=== PATIENT | male | born 1965 | race Caucasian/White ===

== ENCOUNTER 2016-06-25 11:17 | Emergency (ER) | payer OTHER ==
--- NOTE | 2016-06-25 12:24 | DIAGNOSTIC IMAGING REPORT ---
PROCEDURE: XR CHEST 2 VIEW INDICATION: COUGH TECHNIQUE: PA and lateral views. COMPARISON: None. FINDINGS: Lungs are clear. Heart and mediastinum are normal. Thorax is normal. IMPRESSION: 1. Negative chest.
--- NOTE | 2016-06-26 02:32 | ED CLINICAL REPORT ---
Clinical Report - Physicians/Mid Levels [facility] [address] [place] [address] 06/25/2016 11:21 [id number] Time Seen: 11:54 Jun 25 2016. Arrived- By private vehicle. Historian- patient. CPT: ER phys charges level 4 (#[id number]). HISTORY OF PRESENT ILLNESS Chief Complaint: SORE THROAT. Body aches, cough. 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 Pain described as moderate. The patient has had a sore throat. (Muscle aches). Similar symptoms previously: As bad. Diagnosed as streptococcal infection. Recent medical care: Not recently seen/assessed. REVIEW OF SYSTEMS No fever, eye discomfort, chest pain, nausea or diarrhea. No abdominal pain, headache, fainting episodes, joint pain or skin rash. No enlarged lymph nodes or vomiting. He has had a moderate cough productive of moderate amounts of yellow sputum. He has had difficulty breathing. All systems otherwise negative, except as recorded above. PAST HISTORY Strep Throat. --11:30 Stephane Mendez R.N. ADDITIONAL SURGERIES: Tonsillectomy. Medications: None. Allergies: No Known Drug Allergy. SOCIAL HISTORY Former smoker. No alcohol use or drug use. ADDITIONAL NOTES The nursing notes have been reviewed. PHYSICAL EXAM Vital Signs: 06/25/2016 11:28 BP: 95/62. HR: 86. RR: 16. O2 saturation: 100%. Temp: 100.6 F. Pain level now: 8/10. Appearance: Alert. No acute distress. Head: Normal external inspection. Eyes: Pupils equal, round and reactive to light. Conjunctivae and eyelids normal. ENT: Ears normal. Nose normal. Pharynx normal. Lips normal. Gums normal. No trismus present. Uvula midline. No pharyngeal erythema, mouth ulcerations or tonsillar exudate. Neck: Trachea midline. No adenopathy. CVS: Normal heart rate and rhythm. Heart sounds normal. Pulses normal. Respiratory: No respiratory distress. Mild bilateral rhonchi present diffusely. Chest nontender. Abdomen: Soft and nontender. Skin: Normal skin color. No rash. Extremities: Extremities nontender. Neuro: Oriented X 3. No motor deficit. No sensory deficit. Reflexes normal. LABS, X-RAYS, AND EKG Chest X-ray: Normal Chest X-Ray. Laboratory Tests: CBC w Diff: (JABIER: 06/25/2016 12:20) ( [facility] 06/25/2016 12:35) Final results Test Result Flag Units (Reference) WHITE BLOOD COUNT 6.7 K/uL (4.5-11.5) RED BLOOD COUNT 5.26 M/uL (4.50-5.90) HEMOGLOBIN 14.3 gm/dL (13.5-17.5) HEMATOCRIT 43.8 % (41.0-53.0) MEAN CELL VOLUME 83 fL (80-100) MEAN CORPUSCULAR HGB 27 pg (26-34) MEAN CORPUSCULAR HGB CONC 33 g/dL (31-37) RED CELL DISTRIBUTION WIDTH 19.6 H % (11.6-14.8) PLATELET COUNT 206 K/uL (150-400) NEUTROPHIL % 79.3 H % (50-75) LYMPH % 11.5 L % (25-40) MONO % 8.6 % (3-14) EOSINOPHIL % 0.2 % (0-4) BASOPHIL % 0.4 % (0-2) Culture, Strep Screen: (JABIER: 06/25/2016 12:25) ( [facility] 06/25/2016 13:04) Final results Test Result Flag Units (Reference) RAPID STREP SCREEN - THROAT DATE: 06/25/16 NEGATIVE SCREEN: RAPID STREP SCREEN NEGATIVE; CONFIRMATION TO FOLLOW Rapid Influenza Screen: (JABIER: 06/25/2016 12:25) ( [facility] 06/25/2016 13:04) Final results SPECIMEN DESCRIPTION: SWAB Test Result Flag Units (Reference) RAPID INFLUENZA SCREEN CALLED TO: JERAD KHAN ED -- DATE: 06/25/16 INFLUENZA A: NEGATIVE SCREEN FOR INFLUENZA A INFLUENZA B: POSITIVE SCREEN FOR INFLUENZA B . PROGRESS AND PROCEDURES Course of Care: White GI cocktail did nothing for throat pain. Patient/family counseled. Disposition: Discharged. Condition: stable. CLINICAL IMPRESSION Influenza type B with upper respiratory infection, rhinitis and bronchitis. INSTRUCTIONS No strenuous activity. Drink plenty of fluids. Warnings: Further evaluation is necessary. GENERAL WARNINGS: Return or contact your physician immediately if your condition worsens or changes unexpectedly, if not improving as expected, or if other problems arise. Prescription Medications: Hydrocodone/APAP 5mg/325mg: take 1 to 2 orally every 6 hours as needed for pain. Dispense fifteen (15). No refills. OTC Medications: Motrin (available over the counter): take according to label instructions. Follow-up: Return to the emergency department If worsening. Follow up with your doctor in five days if not better. Understanding of the discharge instructions verbalized by patient. (Electronically signed by Brady Vernon MD 06/25/2016 16:52)
--- NOTE | 2016-06-26 02:32 | ED NURSING NOTES ---
Clinical Report - Nurses [facility] [place] [address] 06/25/2016 11:21 Patient: BALAJI PENN TRIAGE Triage time 11:28. Acuity: LEVEL 4. Chief Complaint: "FLU", SORE THROAT and BODY ACHES and (Onset of flu sx 5 days ago, unknown if he has a fever. Difficulty swallowing, no appetite, unable to sleep.). 11:34 06/25/16. SEPSIS SCREEN: Sepsis Screen. Negative (no infection suspected/documented). JORGE COMA SCORE: Jorge Coma Scale: 15- eyes open spontaneously (4); best verbal response- oriented x 4 (5); best motor response- obeys commands (6). --11:34 Stephane Mendez R.N. 11:28 06/25/16. BP: 95/62. HR: 86. RR: 16. O2 saturation: 100% on room air. Temp: 100.6 F (oral). Pain level now: 11/27. --11:34 Stephane Mendez R.N. Weight: 63.5 kg stated. Height/Length: 58 inches Per Patient. BMI: 29.3. --11:30 Stephane Mendez R.N. Medications None. --11:30 Stephane Mendez R.N. Allergies No Known Drug Allergy. --11:30 Stephane Mendez R.N. History Arrived by private vehicle. Historian: patient. SOCIAL HX: Former smoker, end date 2009. No alcohol use or drug use. ABUSE ASSESSMENT: No report of abuse. --11:34 Stephane Mendez R.N. PROBLEMS: Strep Throat. --11:30 Stephane Mendez R.N. ADDITIONAL SURGERIES: Tonsillectomy. --11:30 Stephane Mendez R.N. Interventions ID band on patient. To treatment room. --11:34 Stephane Mendez R.N. PHYSICAL ASSESSMENT 11:40 06/25/16. Ambulatory to room. GENERAL / NEURO / PSYCH: Alert. Oriented X 4. Appears in pain. HEENT: Pupils equal, round and reactive to light. ( sore throat). Mucous membranes are pink. RESPIRATORY: Respirations not labored. Chest nontender. Breath sounds within normal limits. CVS: Capillary refill less than 2 seconds. Pulses within normal limits. GI / : Abdomen soft and nontender and normal bowel sounds. SKIN: Skin is pale. Skin is warm and dry. Normal skin turgor. --11:40 Stephane Mendez R.N. NURSING PROGRESS NOTES 11:41 06/25/16. Head of bed elevated. Reassurance given. Two patient identifiers checked. Call light placed in reach. Bed placed in lowest position. Brakes of bed on. Patient ready for evaluation- chart flagged. --11:41 Stephane Mendez R.N. 12:30 06/25/2016 GI COCKTAIL WHITE (Simethicone) PO Oral Suspension 50 mL given. Allergies verified and confirmed 5 rights. --12:33 Stephane Mendez R.N. 13:10. ( Pt resting quietly, given additional blanket and lights dimmed. waiting for lab results). --13:11 Ingrid Krishnamurthy R.N. DISPOSITION / DISCHARGE 13:20. Condition at departure: stable. No learning barriers present. Discharge instructions provided and reviewed with the patient. Reviewed medication(s) (vicodin , motrin). Patient verbalized understanding. Written instructions provided in Ukrainian. The patient was discharged home. He left the Emergency Department ambulatory and via private vehicle. --13:38 Ingrid Krishnamurthy R.N. 13:20 06/25/16. BP: 102/62. HR: 92. RR: 18. O2 saturation: 97%. Temp: 100.4 F. Pain level now: 11/27. --13:38 Ingrid Krishnamurthy R.N. Locked/Released at 06/25/2016 13:38 by Ingrid Krishnamurthy R.N.
--- NOTE | 2016-06-26 02:32 | ED ORDER SUMMARY ---
..... Patient: BALAJI PENN OrderSheet [facility] VisitID: [id number] [address] [place] [address] 51y, M Registration Date/Time: 06/25/2016 ORDER SHEET Weight: 63.5 kg (stated) Allergies: No Known Drug Allergy GENERAL ORDERS: Chest 2V Urgent (12:02 06/25/2016 Rebecca NAYAK) (12:10 KHoerner) Rapid Influenza Screen (Nasal Pharyngeal) (swab) Urgent (12:03 06/25/2016 Rebecca NAYAK) (Ack 12:12 KHoerner) (12:33 JSimbeck R.N.) CBC w Diff Urgent (12:03 06/25/2016 Rebecca NAYAK) (Ack 12:12 KHoerner) (12:33 JSimbeck R.N.) Culture, Strep Screen Urgent (12:03 06/25/2016 Rebecca NAYAK) (Ack 12:12 KHoerner) (12:33 JSimbeck R.N.) MEDICATION ORDERS: GI Cocktail WHITE PO 50 mL (NOW) (12:03 06/25/2016 Rebecca NAYAK) (12:33 JSimbeck R.N.) IV FLUIDS: ORDER SHEET NOTES: [Electronically signed by Ingrid Krishnamurthy R.N. (13:38 06/25/2016)] [Electronically signed by Brady Vernon MD (16:52 06/25/2016)] [Electronically locked/signed by Ingrid Krishnamurthy R.N. (13:38 06/25/2016)]
--- NOTE | 2016-06-26 02:32 | ED ORDER SUMMARY ---
..... Patient: BALAJI PENN OrderSheet [facility] VisitID: [id number] [address] [place] [address] 51y, M Registration Date/Time: 06/25/2016 ORDER SHEET Weight: 63.5 kg (stated) Allergies: No Known Drug Allergy GENERAL ORDERS: Chest 2V Urgent (12:02 06/25/2016 Rebecca NAYAK) (12:10 KHoerner) Rapid Influenza Screen (Nasal Pharyngeal) (swab) Urgent (12:03 06/25/2016 Rebecca NAYAK) (Ack 12:12 KHoerner) (12:33 JSimbeck R.N.) CBC w Diff Urgent (12:03 06/25/2016 Rebecca NAYAK) (Ack 12:12 KHoerner) (12:33 JSimbeck R.N.) Culture, Strep Screen Urgent (12:03 06/25/2016 Rebecca NAYAK) (Ack 12:12 KHoerner) (12:33 JSimbeck R.N.) MEDICATION ORDERS: GI Cocktail WHITE PO 50 mL (NOW) (12:03 06/25/2016 Rebecca NAYAK) (12:33 JSimbeck R.N.) IV FLUIDS: ORDER SHEET NOTES: [Electronically signed by Ingrid Krishnamurthy R.N. (13:38 06/25/2016)] [Electronically signed by Brady Vernon MD (16:52 06/25/2016)] [Electronically locked/signed by Ingrid Krishnamurthy R.N. (13:38 06/25/2016)]
--- NOTE | 2016-06-26 02:32 | ED CLINICAL REPORT ---
Clinical Report - Physicians/Mid Levels [facility] [address] [place] [address] 06/25/2016 11:21 [id number] Time Seen: 11:54 Jun 25 2016. Arrived- By private vehicle. Historian- patient. CPT: ER phys charges level 4 (#[id number]). HISTORY OF PRESENT ILLNESS Chief Complaint: SORE THROAT. Body aches, cough. 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 Pain described as moderate. The patient has had a sore throat. (Muscle aches). Similar symptoms previously: As bad. Diagnosed as streptococcal infection. Recent medical care: Not recently seen/assessed. REVIEW OF SYSTEMS No fever, eye discomfort, chest pain, nausea or diarrhea. No abdominal pain, headache, fainting episodes, joint pain or skin rash. No enlarged lymph nodes or vomiting. He has had a moderate cough productive of moderate amounts of yellow sputum. He has had difficulty breathing. All systems otherwise negative, except as recorded above. PAST HISTORY Strep Throat. --11:30 Stephane Mendez R.N. ADDITIONAL SURGERIES: Tonsillectomy. Medications: None. Allergies: No Known Drug Allergy. SOCIAL HISTORY Former smoker. No alcohol use or drug use. ADDITIONAL NOTES The nursing notes have been reviewed. PHYSICAL EXAM Vital Signs: 06/25/2016 11:28 BP: 95/62. HR: 86. RR: 16. O2 saturation: 100%. Temp: 100.6 F. Pain level now: 8/10. Appearance: Alert. No acute distress. Head: Normal external inspection. Eyes: Pupils equal, round and reactive to light. Conjunctivae and eyelids normal. ENT: Ears normal. Nose normal. Pharynx normal. Lips normal. Gums normal. No trismus present. Uvula midline. No pharyngeal erythema, mouth ulcerations or tonsillar exudate. Neck: Trachea midline. No adenopathy. CVS: Normal heart rate and rhythm. Heart sounds normal. Pulses normal. Respiratory: No respiratory distress. Mild bilateral rhonchi present diffusely. Chest nontender. Abdomen: Soft and nontender. Skin: Normal skin color. No rash. Extremities: Extremities nontender. Neuro: Oriented X 3. No motor deficit. No sensory deficit. Reflexes normal. LABS, X-RAYS, AND EKG Chest X-ray: Normal Chest X-Ray. Laboratory Tests: CBC w Diff: (JABIER: 06/25/2016 12:20) ( [facility] 06/25/2016 12:35) Final results Test Result Flag Units (Reference) WHITE BLOOD COUNT 6.7 K/uL (4.5-11.5) RED BLOOD COUNT 5.26 M/uL (4.50-5.90) HEMOGLOBIN 14.3 gm/dL (13.5-17.5) HEMATOCRIT 43.8 % (41.0-53.0) MEAN CELL VOLUME 83 fL (80-100) MEAN CORPUSCULAR HGB 27 pg (26-34) MEAN CORPUSCULAR HGB CONC 33 g/dL (31-37) RED CELL DISTRIBUTION WIDTH 19.6 H % (11.6-14.8) PLATELET COUNT 206 K/uL (150-400) NEUTROPHIL % 79.3 H % (50-75) LYMPH % 11.5 L % (25-40) MONO % 8.6 % (3-14) EOSINOPHIL % 0.2 % (0-4) BASOPHIL % 0.4 % (0-2) Culture, Strep Screen: (JABIER: 06/25/2016 12:25) ( [facility] 06/25/2016 13:04) Final results Test Result Flag Units (Reference) RAPID STREP SCREEN - THROAT DATE: 06/25/16 NEGATIVE SCREEN: RAPID STREP SCREEN NEGATIVE; CONFIRMATION TO FOLLOW Rapid Influenza Screen: (JABIER: 06/25/2016 12:25) ( [facility] 06/25/2016 13:04) Final results SPECIMEN DESCRIPTION: SWAB Test Result Flag Units (Reference) RAPID INFLUENZA SCREEN CALLED TO: JERAD KHAN ED -- DATE: 06/25/16 INFLUENZA A: NEGATIVE SCREEN FOR INFLUENZA A INFLUENZA B: POSITIVE SCREEN FOR INFLUENZA B . PROGRESS AND PROCEDURES Course of Care: White GI cocktail did nothing for throat pain. Patient/family counseled. Disposition: Discharged. Condition: stable. CLINICAL IMPRESSION Influenza type B with upper respiratory infection, rhinitis and bronchitis. INSTRUCTIONS No strenuous activity. Drink plenty of fluids. Warnings: Further evaluation is necessary. GENERAL WARNINGS: Return or contact your physician immediately if your condition worsens or changes unexpectedly, if not improving as expected, or if other problems arise. Prescription Medications: Hydrocodone/APAP 5mg/325mg: take 1 to 2 orally every 6 hours as needed for pain. Dispense fifteen (15). No refills. OTC Medications: Motrin (available over the counter): take according to label instructions. Follow-up: Return to the emergency department If worsening. Follow up with your doctor in five days if not better. Understanding of the discharge instructions verbalized by patient. (Electronically signed by Brady Vernon MD 06/25/2016 16:52)
--- NOTE | 2016-06-26 02:35 | ED DISCHARGE INSTRUCTIONS ---
Patient: BALAJI PENN General Instructions [facility] VisitID: [id number] [place] [address] 51y, M Registration Date/Time: 06/25/2016 Influenza type B with upper respiratory infection, rhinitis and bronchitis. INSTRUCTIONS No strenuous activity. Drink plenty of fluids. Warnings: Further evaluation is necessary. GENERAL WARNINGS: Return or contact your physician immediately if your condition worsens or changes unexpectedly, if not improving as expected, or if other problems arise. Prescription Medications: Hydrocodone/APAP 5mg/325mg: take 1 to 2 orally every 6 hours as needed for pain. Dispense fifteen (15). No refills. OTC Medications: Motrin (available over the counter): take according to label instructions. Follow-up: Return to the emergency department If worsening. Follow up with your doctor in five days if not better. Understanding of the discharge instructions verbalized by patient. ADDITIONAL INFORMATION Influenza (Adult) Influenza, also called the flu, is a viral illness that affects the air passages of the lungs. It differs from the common cold. It is highly contagious. It may be spread through the air by coughing and sneezing or by direct contact (touching the sick person and then touching your own eyes, nose or mouth). Illness starts 1-3 days after exposure and lasts for 1-2 weeks. Antibiotics are usually not needed unless a complication appears (ear or sinus infection or pneumonia). Symptoms may be mild or severe and can include extreme tiredness (wanting to stay in bed all day), chills, fevers, muscle aching, soreness with eye movement, headache, and a dry, hacking cough. Home Care: Avoid exposure to cigarette smoke (yours or others). Tylenol or ibuprofen (Advil) will help fever, muscle aching, and headache. To avoid risk of liver injury, aspirin should not be used in children and teenagers under 18 with this illness. Nausea and loss of appetite are common. A light diet is recommended. Avoid dehydration by drinking 6-8 glasses of fluids per day (water, sport drinks like Gatorade, soft drinks without caffeine, juices, tea, soup, etc.). Extra fluids will also help loosen secretions in the nose and lungs. Czke-ovw-zufqsdr cold medicines will not shorten the duration of the illness but may be helpful for the following symptoms: cough (Robitussin DM); sore throat (Chloraseptic lozenges or spray); nasal and sinus congestion (Actifed or Sudafed). [NOTE: Do not use decongestants if you have high blood pressure.] Stay home until your fever has been gone for at least 24 hours (without the use of fever-reducing medications such as ibuprofen). Follow Up with your doctor or as directed by our staff if you are not improving over the next week. Note: If you are age 65 or older, or if you have chronic asthma or COPD, we recommend a pneumococcal vaccinationevery five years. All adults shouldreceive a yearly influenza vaccination every . Ask your doctor about this. Get Prompt Medical Attention if any of the following occur: Cough with lots of colored sputum (mucus) or blood in your sputum Chest pain, shortness of breath, wheezing, or difficulty breathing Severe headache, face, neck or ear pain New rash Fever of 100.4F (38C) oral or higher, not better with fever medication Confusion, behavior change or seizure Severe weakness or dizziness You have been given the following additional information: Influenza (Adult) No strenuous activity. (Electronically signed by Brady Vernon MD 06/25/2016 16:52)
--- NOTE | 2016-06-26 02:35 | ED MAR SUMMARY ---
..... Medication Administration Record [facility] [address] [place] [address] Patient: BALAJI PENN Visit ID: [id number] 51y, M Weight: 63.5 kg Height/Length: 58 in BMI: 29.3 ALLERGIES: No Known Drug Allergy Given 12:30 06/25/2016 Stephane Mendez R.N. Medication Administered: GI COCKTAIL WHITE [PO] (SIMETHICONE), Dose: 50 mL Oral Suspension PO. Medication Ordered: GI Cocktail WHITE PO 50 mL (NOW).
--- NOTE | 2016-06-26 02:35 | ED MED RECONCILIATION SUMMARY ---
Patient: BALAJI PENN Medication Reconciliation Report [facility] VisitID: [id number] [address] [place] [address] 51y, M Registration Date/Time: 06/25/2016 Weight: 63.5 kg Height/Length: 58 in. BMI: 29.3 ALLERGIES: No Known Drug Allergy The patient's Home Medications are listed below: NONE. The source(s) of the original Home Medication information: Not obtained. The following Medications were given to the patient in the Emergency Department: GI COCKTAIL WHITE [PO] PO 50 mL, administered: 06/25/2016 12:30:00 PM The following Medications were prescribed to the patient: Motrin (available over the counter): take according to label instructions. -- Brady Vernon MD Hydrocodone/APAP 5mg/325mg: take 1 to 2 orally every 6 hours as needed for pain. Dispense fifteen (15). No refills. -- Brady Vernon MD
--- NOTE | 2016-06-26 02:35 | ED MED RECONCILIATION SUMMARY ---
Patient: BALAJI PENN Medication Reconciliation Report [facility] VisitID: [id number] [address] [place] [address] 51y, M Registration Date/Time: 06/25/2016 Weight: 63.5 kg Height/Length: 58 in. BMI: 29.3 ALLERGIES: No Known Drug Allergy The patient's Home Medications are listed below: NONE. The source(s) of the original Home Medication information: Not obtained. The following Medications were given to the patient in the Emergency Department: GI COCKTAIL WHITE [PO] PO 50 mL, administered: 06/25/2016 12:30:00 PM The following Medications were prescribed to the patient: Motrin (available over the counter): take according to label instructions. -- Brady Vernon MD Hydrocodone/APAP 5mg/325mg: take 1 to 2 orally every 6 hours as needed for pain. Dispense fifteen (15). No refills. -- Brady Vernon MD
--- NOTE | 2016-06-26 02:35 | ED MAR SUMMARY ---
..... Medication Administration Record [facility] [address] [place] [address] Patient: BALAJI PENN Visit ID: [id number] 51y, M Weight: 63.5 kg Height/Length: 58 in BMI: 29.3 ALLERGIES: No Known Drug Allergy Given 12:30 06/25/2016 Stephane Mendez R.N. Medication Administered: GI COCKTAIL WHITE [PO] (SIMETHICONE), Dose: 50 mL Oral Suspension PO. Medication Ordered: GI Cocktail WHITE PO 50 mL (NOW).
== END 2016-06-25 13:20 | disposition home or self-care (01) ==
LOC: ED SRH 11:17
DX: J10.1 Influenza due to other identified influenza virus with other respiratory manifestations (principal)
CPT/HCPCS: 90154; 90159; 91400; 95059